=== PATIENT | female | born 1970 | race Two or more races ===

== ENCOUNTER 2018-10-06 19:41 | Emergency (ER) | payer OTHER ==
[~2018-10-06] VITALS: Ht 160 cm; Wt 77.1 kg
[2018-10-06 20:52] VITALS: BP 137/92
[2018-10-06] MEDS ORDERED: CEFTRIAXONE 1 G VIAL IM ONE (21:30)
[2018-10-06] MEDS ORDERED: IBUPROFEN 600 MG TABLET PO ONE ×2 (21:30→21:58)
[2018-10-06] MEDS ORDERED: CEFTRIAXONE 1 G VIAL ONE (21:49)
[2018-10-06] MEDS ORDERED: LIDOCAINE 2% 20 ML MDV ONE (21:49)
== END 2018-10-06 22:01 | disposition home or self-care (01) ==
LOC: ER 19:50
DX: J02.0 Streptococcal pharyngitis (principal); Z98.890 Other specified postprocedural states; Z60.2 Problems related to living alone
CPT/HCPCS: 96372; 99283; A4606; J0696; J3490